=== PATIENT | male | born 1970 | race Caucasian/White ===

== ENCOUNTER 2016-08-15 17:47 | Emergency (ER) | payer SELFPAY ==
[~2016-08-15] VITALS: Ht 182.9 cm; Wt 81.0 kg
[~2016-08-15 17:47] MED LIST: BACTRIM DS1 TAB OR; DOXYCYCL HYC100 M3 PO; LORTAB 7.5-3251 TAB PO; MOTRIN800 MG PO; NO MEDS; ULTRAM50 MG OR; ZPAK OR
[2016-08-15] MEDS ORDERED: ULTRAM50 M1 PO (18:16)
[2016-08-15] MEDS ORDERED: BACTRIM DS1 TAB PO (18:16)
[2016-08-15 18:35] VITALS: BP 144/75
== END 2016-08-15 18:35 | disposition home or self-care (01) | DRG 607 ==
LOC: ED 17:47
DX: S60.861A Insect bite (nonvenomous) of right wrist, initial encounter (principal); L03.113 Cellulitis of right upper limb; W57.XXXA Bitten or stung by nonvenomous insect and other nonvenomous arthropods, initial encounter

== ENCOUNTER 2016-08-17 17:26 | Observation (INO) | payer SELFPAY ==
[~2016-08-17] VITALS: Ht 182.9 cm; Wt 76.3 kg
[~2016-08-17 17:26] MED LIST changes: +BACTRIM DS1 TAB PO; +ULTRAM50 M1 PO
[2016-08-17 19:46] LABS: HEMATOCRIT 43.1 % (39.0-50.0); HEMOGLOBIN 15.1 g/dl (14.0-18.0); IMMATURE GRANULOCYTES 0.4 % (0.0-1.0); MEAN CELL VOLUME 85.9 fL CALC (80.0-100.0); MEAN CORPUSCULAR HGB 30.1 pG CALC (26.0-32.0); NEUT# 12.4 thou/uL (1.82-7.42); RED BLOOD COUNT 5.02 mill/uL (4.70-6.10); RED CELL DISTRI WIDTH 12.5 % (11.5-15.5)
[2016-08-17 20:30] LABS: ALBUMIN 4.6 g/dL (3.2-5.0); ALKALINE PHOSPHATASE 89 u/l (38-126); ANION GAP 19 (6-22 (CALC)); BILIRUBIN, TOTAL 0.4 mg/dL (0.0-1.4); BUN 20 mg/dL (9-20); BUN/CREATININE RATIO 18 (12-20 (CALC)); CALCIUM 10.3 mg/dL (8.4-10.2); CARBON DIOXIDE 27 mmol/l (22-30); CHLORIDE 99 mmol/l (95-108); CREATININE 1.1 mg/dL (0.7-1.3); GFR > 60 ML/MIN (>=60 (CALC)); GFR FOR AFR.AMER. > 60 ML/MIN (>=60 (CALC)); GLUCOSE 115 mg/dL (75-110); POTASSIUM 4.2 mmol/l (3.5-5.1); SGOT/AST 23 u/l (17-59); SGPT/ALT 31 u/l (21-72); SODIUM 142 mmol/l (137-146); TOTAL PROTEIN 7.9 g/dL (6.3-8.2)
[2016-08-17 21:55] VITALS: BP 142/76
[2016-08-17 23:47] VITALS: BP 149/87
[2016-08-18 04:25] VITALS: BP 122/78
[2016-08-18 08:00] VITALS: BP 132/75
[2016-08-18 10:59] LABS: HEMATOCRIT 41.4 % (39.0-50.0); HEMOGLOBIN 14.6 g/dl (14.0-18.0); IMMATURE GRANULOCYTES 0.3 % (0.0-1.0); MEAN CELL VOLUME 85.2 fL CALC (80.0-100.0); MEAN CORPUSCULAR HGB CONC 35.3 g/L CALC (32.0-36.0); NEUT# 11.31 thou/uL (1.82-7.42); RED BLOOD COUNT 4.86 mill/uL (4.70-6.10); RED CELL DISTRI WIDTH 12.5 % (11.5-15.5)
[2016-08-18 11:16] LABS: ANION GAP 12 (6-22 (CALC)); BUN 19 mg/dL (9-20); BUN/CREATININE RATIO 18 (12-20 (CALC)); CARBON DIOXIDE 30 mmol/l (22-30); CHLORIDE 100 mmol/l (95-108); GFR > 60 ML/MIN (>=60 (CALC)); GFR FOR AFR.AMER. > 60 ML/MIN (>=60 (CALC)); GLUCOSE 128 mg/dL (75-110); POTASSIUM 4.6 mmol/l (3.5-5.1); SODIUM 137 mmol/l (137-146)
[2016-08-18 15:26] VITALS: BP 155/80
[2016-08-18 18:59] VITALS: BP 122/62
[2016-08-19 03:38] VITALS: BP 130/71
[2016-08-19 04:56] LABS: HEMATOCRIT 40.5 % (39.0-50.0); HEMOGLOBIN 13.9 g/dl (14.0-18.0); IMMATURE GRANULOCYTES 0.4 % (0.0-1.0); MEAN CELL VOLUME 85.6 fL CALC (80.0-100.0); MEAN CORPUSCULAR HGB 29.4 pG CALC (26.0-32.0); MEAN CORPUSCULAR HGB CONC 34.3 g/L CALC (32.0-36.0); NEUT# 6.64 thou/uL (1.82-7.42); RED BLOOD COUNT 4.73 mill/uL (4.70-6.10); RED CELL DISTRI WIDTH 12.3 % (11.5-15.5)
[2016-08-19 05:16] LABS: ANION GAP 15 (6-22 (CALC)); BUN 21 mg/dL (9-20); BUN/CREATININE RATIO 20 (12-20 (CALC)); CALCIUM 9.8 mg/dL (8.4-10.2); CARBON DIOXIDE 27 mmol/l (22-30); CHLORIDE 102 mmol/l (95-108); GFR > 60 ML/MIN (>=60 (CALC)); GFR FOR AFR.AMER. > 60 ML/MIN (>=60 (CALC)); GLUCOSE 107 mg/dL (75-110); POTASSIUM 4.5 mmol/l (3.5-5.1); SODIUM 139 mmol/l (137-146)
[2016-08-19 09:00] VITALS: BP 149/90
[2016-08-19 16:00] VITALS: BP 127/81
[2016-08-19] MEDS ORDERED: MINOCYCLINE PO (18:33)
[2016-08-19 19:30] VITALS: BP 135/70
[2016-08-20 04:30] VITALS: BP 143/82
[2016-08-20 06:26] LABS: ANION GAP 16 (6-22 (CALC)); BUN 23 mg/dL (9-20); BUN/CREATININE RATIO 23 (12-20 (CALC)); CARBON DIOXIDE 25 mmol/l (22-30); CHLORIDE 101 mmol/l (95-108); GFR > 60 ML/MIN (>=60 (CALC)); GFR FOR AFR.AMER. > 60 ML/MIN (>=60 (CALC)); GLUCOSE 104 mg/dL (75-110); POTASSIUM 4.8 mmol/l (3.5-5.1); SODIUM 138 mmol/l (137-146)
[2016-08-20 07:35] VITALS: BP 123/50
[2016-08-20] MEDS ORDERED: CUBICIN500 MG IV (07:37)
[2016-08-20 12:25] VITALS: BP 122/81
== END 2016-08-20 14:35 | disposition home or self-care (01) | DRG 603 ==
LOC: ENPENDDIS → ED 17:26 → ED-I 20:50 → ED 21:11 → MS2 21:12
PROVIDERS: Emergency Medicine; Internal Medicine; ADMIT Internal Medicine; ATTEND Internal Medicine
PROC: 0H9DXZZ Drainage of Right Lower Arm Skin, External Approach (ICD-10-PCS; principal; 2016-08-17)
DX: L02.413 Cutaneous abscess of right upper limb (principal); B95.62 Methicillin resistant Staphylococcus aureus infection as the cause of diseases classified elsewhere; L03.113 Cellulitis of right upper limb; Z95.2 Presence of prosthetic heart valve; Z87.891 Personal history of nicotine dependence; Z91.14 Patient's other noncompliance with medication regimen
CPT/HCPCS: G0378; J3370

== ENCOUNTER 2020-07-04 10:45 | Observation (INO) | payer SELFPAY ==
[2020-07-04] VITALS (8 sets, daily range): BP systolic 107–162; BP diastolic 66–89
[~2020-07-04] VITALS: Ht 182.9 cm; Wt 99.0 kg
[~2020-07-04 10:45] MED LIST changes: +CUBICIN500 MG IV; +MINOCYCLINE PO
--- NOTE | 2020-07-04 10:55 | NUR ---
[facility] AIR AND RESPIRATIONS AT 22 MD NOTIFIED OF STATUS
--- NOTE | 2020-07-04 11:20 | NUR ---
Reassessment of patient completed. No distress noted.
[2020-07-04 12:34] LABS: HEMATOCRIT 44.6 % (39.0-50.0); HEMOGLOBIN 14.6 g/dl (14.0-18.0); IMMATURE GRANULOCYTES 0.2 % (0.0-5.0); MEAN CELL VOLUME 88.1 fL CALC (80.0-100.0); MEAN CORPUSCULAR HGB 28.9 pG CALC (26.0-32.0); MEAN CORPUSCULAR HGB CONC 32.7 g/dL CAL (32.0-36.0); NEUT# 6.61 thou/uL (1.82-7.42); RED BLOOD COUNT 5.06 mill/uL (4.70-6.10); RED CELL DISTRI WIDTH 12.9 % (11.5-15.5)
[2020-07-04 12:44] LABS: ALBUMIN 4.4 g/dL (3.2-5.0); BUN 18 mg/dL (9-20); BUN/CREATININE RATIO 19 (12-20 (CALC)); CARBON DIOXIDE 20 mmol/l (22-30); CHLORIDE 89 mmol/l (95-108); GFR > 60 ML/MIN (>=60 (CALC)); GFR FOR AFR.AMER. > 60 ML/MIN (>=60 (CALC)); POTASSIUM 4.5 mmol/l (3.5-5.1); TOTAL PROTEIN 7.2 g/dL (6.3-8.2)
[2020-07-04 12:53] LABS: ALKALINE PHOSPHATASE 171 u/l (38-126); ANION GAP 21 (6-22 (CALC)); BILIRUBIN, TOTAL 0.8 mg/dL (0.0-1.4); SGOT/AST 41 u/l (17-59); SODIUM 125 mmol/l (137-146)
--- NOTE | 2020-07-04 12:53 | NUR ---
Reassessment of patient completed. No distress noted.
[2020-07-04 12:56] LABS: MYOGLOBIN 64 ng/mL (0 - 121)
[2020-07-04] MEDS ORDERED: ASPIRIN 81 LOW81 MG (13:54)
[2020-07-04 14:08] LABS: URINE BILIRUBIN - DIPSTICK NEGATIVE (NEGATIVE); URINE BLOOD DIPSTICK NEGATIVE (NEGATIVE); URINE CLARITY CLEAR; URINE COLOR YELLOW; URINE GLUCOSE - DIPSTICK >=1000 mg/dL (NEGATIVE); URINE KETONE NEGATIVE (NEGATIVE); URINE LEUK ESTERASE NEGATIVE (Negative); URINE NITRITE - DIPSTICK NEGATIVE (Negative); URINE PROTEIN - DIPSTICK NEGATIVE (NEG-TRACE); URINE SPECIFIC GRAVITY <=1.005; URINE UROBILINOGEN - DIPSTICK 0.2 E.U./dL (0.2)
--- NOTE | 2020-07-04 15:40 | NUR ---
PT TO ICU BED 1 VIA ER STRETCHER. PT ABLE TO TRANSFER SELF FROM STRETCHER TO BED. PT IS ALERT AND ORIENTED X3. ADMISSION ASSESSMENT COMPLETED AT THIS TIME. IV PATENT X2. CASSIE 373. D EMELY HARTLEY AT BEDSIDE ORDERS RECEIVED TO DC INSULIN GTT. ORIENTED PT TO ROOM AND UNIT. CALL LIHGT IN REACH. WILL CONTINUE TO MONITOR.
--- NOTE | 2020-07-04 16:59 | NUR ---
PT GIVEN LEVEMIR AND HUMALOG PER JUL. EDUCATION PROVIDED. PT REQUESTING A SANDWICH. PT HAD JUST BEEN GIVEN CRACKERS. EXPLAINED THAT DINNER WOULD ARRIVE IN 30 MINUTES. PT AGREED TO WAIT. EXPLAINE DA1C, IMPORTANCE OF GLUCOSE WNL.
--- NOTE | 2020-07-04 18:08 | NUR ---
LAB AT BEDSIDE FOR 1800 TROPONIN
--- NOTE | 2020-07-04 19:50 | NUR ---
RESTING IN BED. AWAKE, ALERT AND ORIENTED. SPEECH CLEAR AND APPROPRIATE RESPONSES TO QUESTIONS ALTHOUGH HESITANT IN ANSWERNG ANY QUESTIONS. RESP EVEN AND UNLABORED. LUNGS CLEAR. NO PERIPHERAL EDEMA, PULSES PALPABLE. LAC SALINE LOCK LEAKING, DC'D WITH CATHETER INTACT. RAC IV SITE BENIGN, NS INFUSING AT 100 ML/HR. PLANT BIOLOGY PROFESSOR SHOWS SR WITH BBB. DISCUSSED PLAN OF CARE. DENIES NEEDS AT THIS TIME. CALL WATERMAN IN REACH.
--- NOTE | 2020-07-04 20:20 | NUR ---
PATIENT KEVYN PHONED IN FOR CONDITION UPDATE. PATIENT SPOKE WITH ON PORTABLE PHONE.
--- NOTE | 2020-07-04 21:00 | NUR ---
HS ACCU CHECK 295, COVERED PER MEDIUM DOSE SS PROTOCOL. PATIENT PROVIDED WITH HS SNACK OF JUICE, ATUL CRACKERS AND SUGAR FREE PUDDING.
--- NOTE | 2020-07-04 22:00 | NUR ---
RESTING IN BED WITHOUT COMPLAINTS. VSS.
[2020-07-05] VITALS (7 sets, daily range): BP systolic 94–131; BP diastolic 50–79
--- NOTE | 2020-07-05 | NUR ---
ASLEEP ON ROUNDS. VSS. RESP NON-LABORED. SR WITH BBB ON MONITOR. IV INFUSING WITHOUT INCIDENT.
--- NOTE | 2020-07-05 00:30 | NUR ---
BLOOD DRAWN FRO TROPONIN LEVEL AND SENT TO LAB.
--- NOTE | 2020-07-05 02:00 | NUR ---
SLEEPS SOUNDLY. RESP NON-LABORED.
--- NOTE | 2020-07-05 04:00 | NUR ---
NO CHANGES TO REPORT. VSS. RESP NON-LABORED. IV INFUSING WITHOUT INCIDENT. SR WITH BBB ON MONITOR.
[2020-07-05 05:48] LABS: HEMOGLOBIN 13.2 g/dl (14.0-18.0); MEAN CORPUSCULAR HGB 28.7 pG CALC (26.0-32.0); RED BLOOD COUNT 4.6 mill/uL (4.70-6.10); RED CELL DISTRI WIDTH 12.9 % (11.5-15.5)
[2020-07-05 06:13] LABS: BUN 13 mg/dL (9-20); BUN/CREATININE RATIO 17 (12-20 (CALC)); CALCULATED LDLCHOLESTEROL 134 mg/dL (62-129 (CALC)); CHOLESTEROL HDL RATIO 5.5 (<4.4 (CALC)); CREATININE 0.8 mg/dL (0.7-1.3); GFR > 60 ML/MIN (>=60 (CALC)); GFR FOR AFR.AMER. > 60 ML/MIN (>=60 (CALC)); HDL CHOLESTEROL 38 mg/dL (>=40); MAGNESIUM 1.9 mg/dL (1.6-2.3); POTASSIUM 3.7 mmol/l (3.5-5.1); TOTAL CHOLESTEROL 208 mg/dl (0-199); TOTAL TRIGLYCERIDES 183 mg/dl (30-149); VLDL CHOLESTROL 37 mg/dl (8-62 (CALC))
[2020-07-05 06:15] LABS: ANION GAP 8 (6-22 (CALC)); CARBON DIOXIDE 27 mmol/l (22-30); CHLORIDE 103 mmol/l (95-108); SODIUM 134 mmol/l (137-146)
--- NOTE | 2020-07-05 06:15 | NUR ---
SLEPT WELL. NO COMPLAINTS VOICED. VSS. SR WITH BBB ON MONITOR. NS INFUAING AT 100 ML/HR.
--- NOTE | 2020-07-05 07:25 | NUR ---
PT REPORT RECEIVED FROM LPN. PT IS SLEEPING ON LEFT SIDE, VITAL SIGNS STABLE. DENIES ANY COMPLAINT AT THIS TIME
[2020-07-05] MEDS ORDERED: METFORMIN500 M2 PO (08:28)
[2020-07-05] MEDS ORDERED: GLIPIZIDE ER5 MG PO (08:28)
--- NOTE | 2020-07-05 09:32 | NUR ---
SPOKE WITH WEB SITE SPECIALIST FOR HER TO COME TALK TO PT ABOUT NEW ONSET DIABETIC DIET.
--- NOTE | 2020-07-05 10:58 | NUR ---
DIE CASTING MACHINE SETTER SPEAKING WITH PT ABOUT DIET NEEDS WHEN HE GOES HOME
--- NOTE | 2020-07-05 12:07 | NUR ---
SPOKE WITH RISK MANAGEMENT ABOUT PT GETTING DISCHARGED WITHOUT A RIDE TO PICK HIM UP, PT STATES HIS GIRLFRIEND HAS BEEN DOWN IN PARKING LOT SINCE THEY CAME BY BUS LAST NIGHT AND IS IN PARKING LOT, CALLED DOWN TO REGISTRATION TO HAVE SECURITY CHECK AROUND OUTSIDE TO SEE IF SHE WAS SLEEPING OUTSIDE. NO ONE WAS THERE. ADVISED PT THAT KEVYN HIS GIRLFRIEND WAS NOT FOUND OUT THERE AND ASKED IF WE COULD GET HIM A TAXI AND HE SAID NO HE DIDNT NEED ONE, HE WOULD FIND HIS GIRLFRIEND AND LEAVE FROM THERE. RISK MANAGEMENT WILL CALL ME BACK
--- NOTE | 2020-07-05 13:30 | NUR ---
PT STATING HE IS READY TO BE DISCHARGED, DISCHARGE PAPERS GIVEN AND EXPLAINED TO PT. EXPLAINED ABOUT THE MEDICATIONS AND TO PICK THEM UP AT PHARMACY. ADVISED PT THAT HE WOULD NEED TO START WATCHING HIS DIET AND MONITERING BLOOD SUGARS. PT VOICES UNDERSTANDING. AND PAPERS SIGNED. PT PLACED IN WHEELCHAIR AND TAKEN DOWN TO FRONT OF BUILDING FOR DISCHARGE. PT LOOKING AROUND FOR GIRLFRIEND WHICH HE THOUGHT WOULD BE WAITING FOR HIM OUTSIDE FROM LAST NIGHT. ASKED PT SINCE GIRLFRIEND WAS NOT HERE COULD I GET HIM A TAXI TO TAKE HIM HOME, HE STATES NO HE WILL WAIT FOR GIRLFRIEND AND THEY WILL TAKE THE BUS TOGETHER HOME. ADVISED IF ANY SYMPTOMS REOCCURED TO COME IMMEDIATELY BACK TO ER. PT VOICES UNDERSTANDING , SITTING ON BENCH.
== END 2020-07-05 13:30 | disposition home or self-care (01) | DRG 638 ==
LOC: ED 10:45 → ED-I 13:20 → ED 13:34 → ICU 13:35
PROVIDERS: Family Medicine; Nurse Practitioner; ADMIT Internal Medicine; ATTEND Internal Medicine
DX: E11.65 Type 2 diabetes mellitus with hyperglycemia (principal); E87.2 Acidosis; E86.0 Dehydration; T45.516A Underdosing of anticoagulants, initial encounter; Z91.120 Patient's intentional underdosing of medication regimen due to financial hardship; Z95.2 Presence of prosthetic heart valve; Z79.82 Long term (current) use of aspirin; Z20.822 Contact with and (suspected) exposure to COVID-19
CPT/HCPCS: J1650

== ENCOUNTER 2021-05-07 13:45 | Emergency (ER) | payer OTHER ==
[~2021-05-07 13:45] MED LIST changes: +ASPIRIN 81 LOW81 MG; +GLIPIZIDE ER5 MG PO; +METFORMIN500 M2 PO
== END 2021-05-07 15:40 | disposition home or self-care (01) | DRG 951 ==
LOC: ED 13:45 → LWOBS 15:39
DX: Z53.21 Procedure and treatment not carried out due to patient leaving prior to being seen by health care provider (principal)

== ENCOUNTER 2021-10-07 08:58 | Inpatient (IN) | payer SELFPAY ==
[2021-10-07] VITALS (48 sets, daily range): BP systolic 88–165; BP diastolic 50–112
[~2021-10-07] VITALS: Ht 182.9 cm; Wt 73.0 kg
--- NOTE | 2021-10-07 09:16 | NUR ---
PT ESCORTED VIA WHEELCHAIR TO ROOM 12 FOR EVAL OF SOB. PT REPORTS QUITTING SMOKING LAST WEEK
[2021-10-07 09:54] LABS: ACT PARTIAL THROMBO TIME 23.5 SECONDS (20.0-32.5); ALBUMIN 3.8 g/dL (3.2-5.0); ALKALINE PHOSPHATASE 97 u/l (38-126); ANION GAP 14 (6-22 (CALC)); BILIRUBIN, TOTAL 0.6 mg/dL (0.0-1.4); BUN 23 mg/dL (9-20); BUN/CREATININE RATIO 26 (12-20 (CALC)); CARBON DIOXIDE 24 mmol/l (22-30); CHLORIDE 104 mmol/l (95-108); CREATININE 0.9 mg/dL (0.7-1.3); ETHYL ALCOHOL 0 mg/dl (0-30); GFR FOR AFR.AMER. > 60 ML/MIN (>=60 (CALC)); GFR OTHER RACES > 60 ML/MIN (>=60 (CALC)); INTERNATIONAL NORMALIZED RATIO 0.9 RATIO (0.7-1.3); LIPASE 84 u/l (23-300); POTASSIUM 4.1 mmol/l (3.5-5.1); PROTHROMBIN TIME 9.9 SECONDS (9.0-12.5); SGOT/AST 23 u/l (17-59); SODIUM 137 mmol/l (137-146); TOTAL PROTEIN 6.8 g/dL (6.3-8.2)
[2021-10-07 10:05] LABS: HEMATOCRIT 36.2 % (39.0-50.0); HEMOGLOBIN 11.8 g/dl (14.0-18.0); IMMATURE GRANULOCYTES 0.2 % (0.0-5.0); MEAN CELL VOLUME 91.2 fL CALC (80.0-100.0); MEAN CORPUSCULAR HGB 29.7 pG CALC (26.0-32.0); MEAN CORPUSCULAR HGB CONC 32.6 g/dL CAL (32.0-36.0); NEUT# 8.85 thou/uL (1.82-7.42); RED BLOOD COUNT 3.97 mill/uL (4.70-6.10); RED CELL DISTRI WIDTH 13.9 % (11.5-15.5)
[2021-10-07 10:31] LABS: URINE BILIRUBIN - DIPSTICK NEGATIVE (NEGATIVE); URINE BLOOD DIPSTICK NEGATIVE (NEGATIVE); URINE COLOR YELLOW; URINE GLUCOSE - DIPSTICK >=1000 mg/dL (NEGATIVE); URINE KETONE NEGATIVE (NEGATIVE); URINE LEUK ESTERASE NEGATIVE (NEGATIVE); URINE PH 5.5 (4.5-8.0); URINE PROTEIN - DIPSTICK NEGATIVE (NEG-TRACE); URINE SPECIFIC GRAVITY 1.015; URINE UROBILINOGEN - DIPSTICK 0.2 E.U./dL (0.2)
[2021-10-07 10:32] LABS: URINE NITRITE - DIPSTICK NEGATIVE (Negative)
--- NOTE | 2021-10-07 11:40 | NUR ---
SBAR SENT TO FLOOR
--- NOTE | 2021-10-07 12:08 | NUR ---
PATIENT TO FLOOR VIA WHEELCHAIR
--- NOTE | 2021-10-07 12:10 | NUR ---
PATIENT TRANSFERED FROM ER TO MS ROOM 272 VIA STRETCHER. BEDSIDE REPORT RECEIVED FROM ER NURSE. VITALS TAKEN, ASSESSMENT COMPLETED. PATIENT RESTING COMFORTABLY IN BED. CALL LIGHT WITHIN REACH, BED AT LOWEST POSITION.
--- NOTE | 2021-10-07 16:00 | NUR ---
PATIENT RESTING IN BED, AWAKE. WATCHING TV. A&O. NO SIGNS OF PAIN OR DISTRESS NOTED OR VERBALIZED AT THIS TIME. WHEN PATIENT BECOMES ACTIVE HIS HEART RATE RAPIDLY INCREASES, ONCE HE SETTLES DOWN HIS HEART RATE DECREASES TO NORMAL RYTHM. BED AT LOWEST POSITION, CALL LIGHT AND BEDSIDE TABLE WITHIN REACH.
--- NOTE | 2021-10-07 17:54 | NUR ---
PATIENT REFUSES TO PUT ON HIS O2 AND CONTINUES TO BE SOB.
--- NOTE | 2021-10-07 18:23 | NUR ---
PATIENT WITH HR IN UPPER 160S FOR MORE THAN 30 MIN. EKG SHOWED AFIB WITH RVR. DR. VIDAL ORDERED 5 MG LOPRESSOR NOW, RECHEK IN 10 MIN AND IF NOT DOWN GIVE ANOTHER 5 MG LOPRESSOR. RECHECK, IF STILL NOT DOWN CALL BACK FOR POSSIBLE CARDIZEM SHAKIRA GAVE FIRST 5 MG DOSE AT 182
--- NOTE | 2021-10-07 18:35 | NUR ---
PATIENT STILL SUSTAINING HR IN 130 TO 150. GAVE ANOTHER 5 MG LOPRESSOR, BP 120/80 SPO2 AT 87%, PATIENT REFUSING OXYGEN.
--- NOTE | 2021-10-07 18:52 | NUR ---
ORDER RECEIVED TO TRANFER PATIENT TO ICU, SPOKE TO Yrn JHA RN. ASSIGNED TO ROOM 7.
--- NOTE | 2021-10-07 18:59 | NUR ---
PATIENT TRASNFERRED VIA WHEELCHAIR TO ICU BED 7, ACCOMPANIED BY Tone YBARRA RN.
--- NOTE | 2021-10-07 19:03 | NUR ---
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
--- NOTE | 2021-10-07 19:48 | NUR ---
SR/PAC on monitor
--- NOTE | 2021-10-07 20:00 | NUR ---
BEDSIDE REPORT RECEIVED FROM Sea JHA RN, CARE OF PT ASSUMED AT THIS TIME.
--- NOTE | 2021-10-07 20:00 | NUR ---
report given to AMIRAH Han
[2021-10-07 20:10] LABS: TSH, 3RD GENERATION 0.46 uIU/mL (0.47 - 4.68)
--- NOTE | 2021-10-07 20:40 | NUR ---
POINT OF CARE GLUCOSE 318mg/dl. DIABETIC HS SNACK PROVIDED.
--- NOTE | 2021-10-07 22:16 | NUR ---
PT PULLED IV ACCIDENTALLY WHILE STANDING UP TO VOID. CATH INTACT. NEW SITE TO R-FA #22G INSERTED X1 ATTEMPT. 500ML CLEAR YELLOW URINE EMPTIED FROM URINAL.
[2021-10-08] VITALS (37 sets, daily range): BP systolic 89–148; BP diastolic 45–94
--- NOTE | 2021-10-08 00:17 | NUR ---
400ml CLEAR YELLOW URINE EMPTIED FROM URINAL. FRESH WATER PROVIDED.
--- NOTE | 2021-10-08 04:20 | NUR ---
NIBP 97/65mmHg, PT ALTERNATING BETWEEN AFIB OR SR WITH PVC AMD 1ST DEGREE BLOCK, RATE OF 60S. CARDIZEM DISCONTINUED AT THIS TIME.
--- NOTE | 2021-10-08 05:10 | NUR ---
Kaye BALTAZAR CPT AT BEDSIDE TO COLLECT LAB WORK.
[2021-10-08 05:51] LABS: HEMATOCRIT 35.8 % (39.0-50.0); HEMOGLOBIN 12.1 g/dl (14.0-18.0); MEAN CELL VOLUME 89.1 fL CALC (80.0-100.0); MEAN CORPUSCULAR HGB 30.1 pG CALC (26.0-32.0); MEAN CORPUSCULAR HGB CONC 33.8 g/dL CAL (32.0-36.0); RED BLOOD COUNT 4.02 mill/uL (4.70-6.10); RED CELL DISTRI WIDTH 13.7 % (11.5-15.5)
[2021-10-08 06:03] LABS: ANION GAP 13 (6-22 (CALC)); BUN 26 mg/dL (9-20); BUN/CREATININE RATIO 34 (12-20 (CALC)); CARBON DIOXIDE 25 mmol/l (22-30); CHLORIDE 103 mmol/l (95-108); CREATININE 0.8 mg/dL (0.7-1.3); GFR FOR AFR.AMER. > 60 ML/MIN (>=60 (CALC)); GFR OTHER RACES > 60 ML/MIN (>=60 (CALC)); MAGNESIUM 1.6 mg/dL (1.6-2.3); POTASSIUM 4.3 mmol/l (3.5-5.1); SODIUM 136 mmol/l (137-146)
[2021-10-08 06:34] LABS: PROTHROMBIN TIME 10.4 SECONDS (9.0-12.5)
--- NOTE | 2021-10-08 10:24 | NUR ---
dr house to see pt, need for pt to comply with anticoagulants at home was discussed and pt stated he did not need them and that low cost coumadin $(5) was still too much money, morning assessment has been done and pt ate 100% of breakfast, Mg+ HANGING NOW, WILL DO REPEAT EKG
--- NOTE | 2021-10-08 15:37 | NUR ---
REPORT RECEIVED FROM AMIRAH LEE
--- NOTE | 2021-10-08 16:18 | NUR ---
PT ARRIVED TO MED/SURG ROOM 274 IN STABLE CONDITION VIA WC ACCOMPANIED BY AMIRAH LEE;PT ASSISTED TO BEDSIDE WITH A STANDBY ASSIST;PT A&O X3, ORIENTED TO ROOM AND CALL LIGHT SYSTEM;PT DENIES ANY CURRENT PAIN OR DISCOMFORTS,PAIN SCALE AND REPORTING EDUCATED;VS AND WT OBTAINED BY JETHRO LANDRY;ASSESSMENT COMPLETED;RESPIRATIONS EVEN AND UNLABORED ON RA,DIMINISHED LUNG SOUNDS NOTED;ABDOMEN SOFT ON PALPATION AND ACTIVE IN ALL 4 QUADRANTS;STRONG PEDAL PULSES;SKIN INTACT;TELE MONITORING IN PLACE;#22G TO LEFT LOWER ARM FLUSHED AND PATENT,SITE APPEARS HEALTHY;FALL AND ALLEGRY BAND NOTED TO LEFT ARM;ACCUCHECK 236, PT TO BE COVERED WITH SLIDING SCALE INSULIN PER ORDER;PT ENCOURAGED TO CALL FOR ASSISTANCE IF NEEDED;BED IN THE LOWEST POSITION WITH CALL LIGHT IN REACH;FREQUENT ROUNDS MADE.
--- NOTE | 2021-10-08 16:22 | NUR ---
pt transported via wc to room 274 on ra, oswaldo well, ambulated with steady gait to and from chair, nurse at bedside upon arrival
--- NOTE | 2021-10-08 17:25 | NUR ---
PT RESTING IN SEMI FOWLERS POSITION;RESPIRATIONS EVEN AND UNLABORED ON RA;PT DENIES ANY CURRENT PAIN OR NEEDS;TELE MONITORING IN PLACE;IV SITE PATENT;PT COVERED WITH SLIDING SCALE INSULIN PER ORDER;ENCOURAGED TO CALL FOR ASSISTANCE IF NEEDED;CALL LIGHT IN REACH;FREQUENT ROUNDS MADE.
--- NOTE | 2021-10-08 18:50 | NUR ---
RECEIVED REPORT FROM AMIRAH ALAV.
--- NOTE | 2021-10-08 19:20 | NUR ---
PT IN BED; A&O X3. EVEN AND UNLABORED RESPIRATIONS; DIMINISHED LUNG SOUNDS UPON AUSCULTATION. TELEMETRY IN PLACE. ACTIVE BOWEL SOUNDS X4 QUADRANTS. FLUSHED IV, #22 RT FOREARM; HEALTHY AND PATENT. PT GETTING READY FOR A SHOWER WITH ASSISTANCE OF AIDE. SAFETY PRECAUTIONS IN PLACE WITH CALL LIGHT IN REACH.
[2021-10-09 00:20] VITALS: BP 117/74
--- NOTE | 2021-10-09 00:20 | NUR ---
PT IN BED; VS OBTAINED BY AIDE AT THIS TIME. NO DISTRESS NOTED. PT DENIES PAIN AT THE MOMENT. TELEMETRY AND SAFETY PRECAUTIONS IN PLACE. CALL LIGHT IN REACH.
--- NOTE | 2021-10-09 04:20 | NUR ---
PT SLEEPING. NO SIGNS OF DISTRESS OR PAIN NOTED. TELEMETRY AND SAFETY PRECAUTIONS IN PLACE. CALL LIGHT IN REACH.
[2021-10-09 04:45] VITALS: BP 128/73
[2021-10-09 06:02] LABS: HEMATOCRIT 38.3 % (39.0-50.0); HEMOGLOBIN 12.7 g/dl (14.0-18.0); MEAN CELL VOLUME 89.3 fL CALC (80.0-100.0); MEAN CORPUSCULAR HGB 29.6 pG CALC (26.0-32.0); MEAN CORPUSCULAR HGB CONC 33.2 g/dL CAL (32.0-36.0); RED BLOOD COUNT 4.29 mill/uL (4.70-6.10); RED CELL DISTRI WIDTH 13.7 % (11.5-15.5)
[2021-10-09 06:15] LABS: PROTHROMBIN TIME 10.4 SECONDS (9.0-12.5)
[2021-10-09 06:32] LABS: ANION GAP 10 (6-22 (CALC)); BUN 26 mg/dL (9-20); BUN/CREATININE RATIO 26 (12-20 (CALC)); CARBON DIOXIDE 27 mmol/l (22-30); CHLORIDE 102 mmol/l (95-108); GFR FOR AFR.AMER. > 60 ML/MIN (>=60 (CALC)); GFR OTHER RACES > 60 ML/MIN (>=60 (CALC)); MAGNESIUM 1.9 mg/dL (1.6-2.3); POTASSIUM 3.8 mmol/l (3.5-5.1); SODIUM 136 mmol/l (137-146)
[2021-10-09 07:14] VITALS: BP 128/80
--- NOTE | 2021-10-09 08:00 | NUR ---
ASSESSMENT ALLOWED. TELE MONITOR IN PLACE CONTINOUS MONITORING PER ED. IV PATENT, FLUSHED. FALL/ SAFTEY PRECAUTION IN PLACE. CALL LIGHT WITHIN REACH
[2021-10-09 10:20] VITALS: BP 115/58
--- NOTE | 2021-10-09 13:35 | NUR ---
Patient decides to leave AMA. Multiple attempts made to ecourage patient to remain here for continued treatment. Explained to patient all risks of leaving against medical advice including . Pt verbalized understanding of all risks. Pt also encouraged to return to [facility] at any time, especially if symptoms continue or become worse. Pt verbalized understanding.
== END 2021-10-09 13:36 | disposition left against medical advice (07) | DRG 190 ==
LOC: ED 08:58 → MS2 11:02 → ICU 19:03 → MS2 10-08 16:28
PROVIDERS: ADMIT Hospitalist; ATTEND Hospitalist
DX: J44.1 Chronic obstructive pulmonary disease with (acute) exacerbation (principal); J18.9 Pneumonia, unspecified organism; J44.0 Chronic obstructive pulmonary disease with (acute) lower respiratory infection; I48.91 Unspecified atrial fibrillation; E11.65 Type 2 diabetes mellitus with hyperglycemia; T45.516A Underdosing of anticoagulants, initial encounter; Z91.120 Patient's intentional underdosing of medication regimen due to financial hardship; Z88.0 Allergy status to penicillin; Z87.891 Personal history of nicotine dependence; Z95.2 Presence of prosthetic heart valve; Z91.11 Patient's noncompliance with dietary regimen; Z20.822 Contact with and (suspected) exposure to COVID-19; Z79.01 Long term (current) use of anticoagulants
CPT/HCPCS: J1650; J1956; J3475

== ENCOUNTER 2021-10-18 10:40 | Emergency (ER) | payer SELFPAY ==
[~2021-10-18] VITALS: Ht 182.9 cm; Wt 68.0 kg
[2021-10-18] VITALS (95 sets, daily range): BP systolic 34–192; BP diastolic 15–151
[2021-10-18 11:03] LABS: HEMATOCRIT 35.8 % (39.0-50.0); HEMOGLOBIN 11.6 g/dl (14.0-18.0); IMMATURE GRANULOCYTES 0.1 % (0.0-5.0); MEAN CELL VOLUME 90.4 fL CALC (80.0-100.0); MEAN CORPUSCULAR HGB 29.3 pG CALC (26.0-32.0); MEAN CORPUSCULAR HGB CONC 32.4 g/dL CAL (32.0-36.0); NEUT# 5.75 thou/uL (1.82-7.42); RED BLOOD COUNT 3.96 mill/uL (4.70-6.10); RED CELL DISTRI WIDTH 13.9 % (11.5-15.5)
[2021-10-18 11:23] LABS: ALBUMIN 3.4 g/dL (3.2-5.0); ALKALINE PHOSPHATASE 114 u/l (38-126); ANION GAP 10 (6-22 (CALC)); BILIRUBIN, TOTAL 0.5 mg/dL (0.0-1.4); BUN 19 mg/dL (9-20); BUN/CREATININE RATIO 23 (12-20 (CALC)); CARBON DIOXIDE 23 mmol/l (22-30); CHLORIDE 106 mmol/l (95-108); CREATININE 0.8 mg/dL (0.7-1.3); GFR FOR AFR.AMER. > 60 ML/MIN (>=60 (CALC)); GFR OTHER RACES > 60 ML/MIN (>=60 (CALC)); SGOT/AST 24 u/l (17-59); SODIUM 135 mmol/l (137-146); TOTAL PROTEIN 6.2 g/dL (6.3-8.2)
== END 2021-10-18 17:34 | disposition short-term general hospital (02) | DRG 208 ==
LOC: ED 10:40
PROVIDERS: Family Medicine
PROC: 0T9B70Z Drainage of Bladder with Drainage Device, Via Natural or Artificial Opening (ICD-10-PCS; principal; 2021-10-18)
PROC: 5A1935Z Respiratory Ventilation, Less than 24 Consecutive Hours (ICD-10-PCS; 2021-10-18)
PROC: 02HV33Z Insertion of Infusion Device into Superior Vena Cava, Percutaneous Approach (ICD-10-PCS; 2021-10-18)
PROC: 0BH17EZ Insertion of Endotracheal Airway into Trachea, Via Natural or Artificial Opening (ICD-10-PCS; 2021-10-18)
DX: J18.9 Pneumonia, unspecified organism (principal); R06.03 Acute respiratory distress; J44.1 Chronic obstructive pulmonary disease with (acute) exacerbation; I50.9 Heart failure, unspecified; I48.91 Unspecified atrial fibrillation; E11.9 Type 2 diabetes mellitus without complications; Z95.2 Presence of prosthetic heart valve; Z20.822 Contact with and (suspected) exposure to COVID-19
CPT/HCPCS: Q9967

== ENCOUNTER 2021-12-09 10:29 | Inpatient (IN) | payer SELFPAY ==
[2021-12-09] VITALS (25 sets, daily range): BP systolic 90–123; BP diastolic 30–73
[~2021-12-09] VITALS: Ht 182.9 cm; Wt 91.0 kg
[2021-12-09 11:52] LABS: HEMATOCRIT 32.6 % (39.0-50.0); HEMOGLOBIN 10.4 g/dl (14.0-18.0); IMMATURE GRANULOCYTES 0.2 % (0.0-5.0); MEAN CELL VOLUME 91.6 fL CALC (80.0-100.0); MEAN CORPUSCULAR HGB 29.2 pG CALC (26.0-32.0); MEAN CORPUSCULAR HGB CONC 31.9 g/dL CAL (32.0-36.0); NEUT# 6.8 thou/uL (1.82-7.42); RED BLOOD COUNT 3.56 mill/uL (4.70-6.10); RED CELL DISTRI WIDTH 14.8 % (11.5-15.5)
[2021-12-09 12:01] LABS: ALBUMIN 3.8 g/dL (3.2-5.0); ALKALINE PHOSPHATASE 73 u/l (38-126); ANION GAP 10 (6-22 (CALC)); BILIRUBIN, TOTAL 0.5 mg/dL (0.0-1.4); BUN 20 mg/dL (9-20); BUN/CREATININE RATIO 19 (12-20 (CALC)); CARBON DIOXIDE 24 mmol/l (22-30); CHLORIDE 104 mmol/l (95-108); CREATININE 1.1 mg/dL (0.7-1.3); GFR FOR AFR.AMER. > 60 ML/MIN (>=60 (CALC)); GFR OTHER RACES > 60 ML/MIN (>=60 (CALC)); SGOT/AST 23 u/l (17-59); SODIUM 134 mmol/l (137-146); TOTAL PROTEIN 6.4 g/dL (6.3-8.2)
[2021-12-09 17:28] LABS: URINE BILIRUBIN - DIPSTICK NEGATIVE (NEGATIVE); URINE BLOOD DIPSTICK NEGATIVE (NEGATIVE); URINE COLOR YELLOW; URINE GLUCOSE - DIPSTICK 250 mg/dL (NEGATIVE); URINE KETONE NEGATIVE (NEGATIVE); URINE LEUK ESTERASE NEGATIVE (NEGATIVE); URINE PROTEIN - DIPSTICK NEGATIVE (NEG-TRACE); URINE SPECIFIC GRAVITY >=1.030; URINE UROBILINOGEN - DIPSTICK 0.2 E.U./dL (0.2)
[2021-12-09 17:31] LABS: URINE NITRITE - DIPSTICK NEGATIVE (Negative)
[2021-12-09] MEDS ORDERED: HYDRALAZINE10 M2 PO (21:35)
[2021-12-09] MEDS ORDERED: LIPITOR40 M1 PO (21:36)
[2021-12-09] MEDS ORDERED: TOPROL XL25 M1 PO (21:37)
[2021-12-09] MEDS ORDERED: WARFARIN6 MG PO (21:38)
[2021-12-09] MEDS ORDERED: METFORMIN500 M2 PO (21:39)
[2021-12-09] MEDS ORDERED: ASPIRIN 81 LOW81 MG PO (21:40)
[2021-12-10] VITALS (7 sets, daily range): BP systolic 118–129; BP diastolic 61–86
[2021-12-10 05:53] LABS: HEMATOCRIT 33.4 % (39.0-50.0); HEMOGLOBIN 10.8 g/dl (14.0-18.0); MEAN CORPUSCULAR HGB 29.4 pG CALC (26.0-32.0); MEAN CORPUSCULAR HGB CONC 32.3 g/dL CAL (32.0-36.0); NEUT# 3.42 thou/uL (1.82-7.42); RED BLOOD COUNT 3.67 mill/uL (4.70-6.10); RED CELL DISTRI WIDTH 14.8 % (11.5-15.5)
[2021-12-10 06:22] LABS: ALBUMIN 3.5 g/dL (3.2-5.0); ALKALINE PHOSPHATASE 72 u/l (38-126); ANION GAP 11 (6-22 (CALC)); BILIRUBIN, TOTAL 0.4 mg/dL (0.0-1.4); BUN 20 mg/dL (9-20); BUN/CREATININE RATIO 23 (12-20 (CALC)); C-REACTIVE PROTEIN 2.5 mg/dL (0-0.9); CARBON DIOXIDE 23 mmol/l (22-30); CHLORIDE 106 mmol/l (95-108); CREATININE 0.9 mg/dL (0.7-1.3); GFR FOR AFR.AMER. > 60 ML/MIN (>=60 (CALC)); GFR OTHER RACES > 60 ML/MIN (>=60 (CALC)); POTASSIUM 4.3 mmol/l (3.5-5.1); SGOT/AST 25 u/l (17-59); SODIUM 136 mmol/l (137-146); TOTAL PROTEIN 6.1 g/dL (6.3-8.2)
[2021-12-10] MEDS ORDERED: CORDARONE/200 MG/TAB PO (07:02)
[2021-12-10 08:12] LABS: PROTHROMBIN TIME 10.7 SECONDS (9.0-12.5)
[2021-12-11 00:20] VITALS: BP 131/75
[2021-12-11 04:00] VITALS: BP 128/72
[2021-12-11 05:18] LABS: HEMATOCRIT 35.5 % (39.0-50.0); HEMOGLOBIN 11.4 g/dl (14.0-18.0); IMMATURE GRANULOCYTES 0.3 % (0.0-5.0); MEAN CELL VOLUME 90.8 fL CALC (80.0-100.0); MEAN CORPUSCULAR HGB 29.2 pG CALC (26.0-32.0); MEAN CORPUSCULAR HGB CONC 32.1 g/dL CAL (32.0-36.0); NEUT# 7.05 thou/uL (1.82-7.42); RED BLOOD COUNT 3.91 mill/uL (4.70-6.10); RED CELL DISTRI WIDTH 14.8 % (11.5-15.5)
[2021-12-11 05:33] LABS: PROTHROMBIN TIME 10.4 SECONDS (9.0-12.5)
[2021-12-11 05:35] LABS: ANION GAP 10 (6-22 (CALC)); BUN 23 mg/dL (9-20); BUN/CREATININE RATIO 22 (12-20 (CALC)); CARBON DIOXIDE 26 mmol/l (22-30); CHLORIDE 103 mmol/l (95-108); GFR FOR AFR.AMER. > 60 ML/MIN (>=60 (CALC)); GFR OTHER RACES > 60 ML/MIN (>=60 (CALC)); MAGNESIUM 1.6 mg/dL (1.6-2.3); POTASSIUM 4.2 mmol/l (3.5-5.1); SODIUM 135 mmol/l (137-146)
[2021-12-11 06:30] VITALS: BP 125/75
[2021-12-11 10:49] VITALS: BP 133/55
[2021-12-11 14:08] VITALS: BP 127/76
[2021-12-11 19:14] VITALS: BP 158/64
[2021-12-12 06:08] LABS: PROTHROMBIN TIME 10.9 SECONDS (9.0-12.5)
[2021-12-12 06:29] LABS: ALKALINE PHOSPHATASE 101 u/l (38-126); ANION GAP 13 (6-22 (CALC)); BILIRUBIN, TOTAL 0.5 mg/dL (0.0-1.4); BUN 22 mg/dL (9-20); BUN/CREATININE RATIO 29 (12-20 (CALC)); CARBON DIOXIDE 26 mmol/l (22-30); CHLORIDE 99 mmol/l (95-108); CREATININE 0.7 mg/dL (0.7-1.3); GFR FOR AFR.AMER. > 60 ML/MIN (>=60 (CALC)); GFR OTHER RACES > 60 ML/MIN (>=60 (CALC)); MAGNESIUM 1.5 mg/dL (1.6-2.3); POTASSIUM 4.2 mmol/l (3.5-5.1); SGOT/AST 29 u/l (17-59); SODIUM 133 mmol/l (137-146); TOTAL PROTEIN 6.8 g/dL (6.3-8.2)
[2021-12-12 06:40] VITALS: BP 140/79
[2021-12-12 06:48] LABS: HEMATOCRIT 37.7 % (39.0-50.0); HEMOGLOBIN 12.2 g/dl (14.0-18.0); IMMATURE GRANULOCYTES 0.3 % (0.0-5.0); MEAN CELL VOLUME 88.9 fL CALC (80.0-100.0); MEAN CORPUSCULAR HGB 28.8 pG CALC (26.0-32.0); MEAN CORPUSCULAR HGB CONC 32.4 g/dL CAL (32.0-36.0); NEUT# 7.96 thou/uL (1.82-7.42); RED BLOOD COUNT 4.24 mill/uL (4.70-6.10); RED CELL DISTRI WIDTH 14.6 % (11.5-15.5)
[2021-12-12 07:44] VITALS: BP 140/79
[2021-12-12] MEDS ORDERED: LIPITOR40 M1 PO (12:14)
[2021-12-12] MEDS ORDERED: VIBRAMYCIN100 M2 PO (12:14)
[2021-12-12] MEDS ORDERED: WARFARIN6 MG PO (12:14)
[2021-12-12] MEDS ORDERED: MEDDOSEPAK PO (12:14)
[2021-12-12] MEDS ORDERED: METFORMIN500 M2 PO (12:14)
[2021-12-12] MEDS ORDERED: COZAAR25 MG PO (12:14)
[2021-12-12] MEDS ORDERED: ASPIRIN 81 LOW81 MG PO (12:14)
[2021-12-12 15:13] VITALS: BP 143/76
== END 2021-12-12 15:27 | disposition home or self-care (01) | DRG 177 ==
LOC: ED 10:29 → ED-I 15:40 → ED 16:03 → MS2 16:04
PROVIDERS: Family Medicine; Nurse Practitioner; ADMIT Internal Medicine; ATTEND Internal Medicine
PROC: XW033E5 Introduction of Remdesivir Anti-infective into Peripheral Vein, Percutaneous Approach, New Technology Group 5 (ICD-10-PCS; principal; 2021-12-10)
PROC: 3E0234Z Introduction of Serum, Toxoid and Vaccine into Muscle, Percutaneous Approach (ICD-10-PCS; 2021-12-10)
DX: U07.1 COVID-19 (principal); J12.82 Pneumonia due to coronavirus disease 2019; R09.02 Hypoxemia; I10 Essential (primary) hypertension; E11.65 Type 2 diabetes mellitus with hyperglycemia; I71.4 Abdominal aortic aneurysm, without rupture; T45.516A Underdosing of anticoagulants, initial encounter; R00.1 Bradycardia, unspecified; T37.5X5A Adverse effect of antiviral drugs, initial encounter; Z91.120 Patient's intentional underdosing of medication regimen due to financial hardship; Z95.2 Presence of prosthetic heart valve; Z23 Encounter for immunization
CPT/HCPCS: J1650; J3475; Q9967